=== PATIENT | female | born 1940 ===

== ENCOUNTER 2018-04-21 17:14 | Emergency (ER) | payer MEDICARE, MEDICAID ==
[2018-04-21 17:14] VITALS: BMI 30.8
--- NOTE | 2018-04-21 17:39 | ED PDOC ---
Arrival/HPI - General Chief Complaint: Allergic Reaction Time Seen by Provider: 04/21/18 17:26 Historian: Patient - History of Present Illness Narrative History of Present Illness (Text): 04/21/18 17:26 77 year old female, pmh including low vitamin D/hypothryoidism, penicillin allergy, complaining of bilateral groin itching with pain x 3 days. Pt. stated that her bilateral groin region been itching and admits sweating alot, been scratching and been having burning pain for the past 2 days, no fever or chills , eating and drinking well, no night sweat, no fatigue, no numbness or palpitation, no dizziness, no other medical or psychological complaints. Past Medical History - Provider Review Nursing Documentation Reviewed: Yes - Cardiac Hx Cardiac Disorders: No - Pulmonary Hx Respiratory Disorders: No - Neurological Hx Neurological Disorder: No - HEENT Hx HEENT Disorder: Yes Hx Cataracts: Yes - Renal Hx Renal Disorder: No - Endocrine/Metabolic Hx Endocrine Disorders: No - Hematological/Oncological Hx Blood Disorders: No - Integumentary Hx Dermatological Disorder: No - Musculoskeletal/Rheumatological Hx Musculoskeletal Disorders: Yes Hx Arthritis: Yes - Gastrointestinal Hx Gastrointestinal Disorders: Yes Hx Bowel Surgery: Yes Hx Gall Bladder Disease: Yes Hx Gastroesophageal Reflux: Yes - Genitourinary/Gynecological Hx Genitourinary Disorders: No - Psychiatric Hx Psychophysiologic Disorder: No Hx Substance Use: No - Surgical History Hx Cholecystectomy: Yes - Anesthesia Hx Anesthesia: Yes Hx Anesthesia Reactions: No Hx Malignant Hyperthermia: No - Suicidal Assessment Feels Threatened In Home Enviroment: No Family/Social History - Physician Review Nursing Documentation Reviewed: Yes Family/Social History: Unknown Family HX Smoking Status: Never Smoked Hx Alcohol Use: No Hx Substance Use: No Allergies/Home Meds Allergies/Adverse Reactions: Allergies Penicillins Allergy (Verified 04/21/18 17:16) RASH Home Medications: Home Meds Medication Instructions Recorded Confirmed Multivit,Iron,Min 5/Folic Acid 1 tab PO DAILY 04/21/18 04/21/18 [Strovite Forte Caplet] Ranitidine HCl [Zantac] 150 mg PO BID 04/21/18 04/21/18 Review of Systems - Review of Systems Constitutional: absent: Fatigue, Fevers Eyes: absent: Vision Changes ENT: absent: Hearing Changes Respiratory: absent: SOB, Cough Cardiovascular: absent: Chest Pain Gastrointestinal: absent: Abdominal Pain Skin: Rash, Pruritis, Skin Lesions, Cellulitis. absent: Laceration, Abscess, Ulcer Neurological: absent: Headache, Dizziness Psychiatric: absent: Anxiety, Depression, Suicidal Ideation Physical Exam Vital Signs Reviewed: Yes Vital Signs Temp Pulse Resp BP Pulse Ox 04/21/18 18:05 98.9 F 90 18 154/78 H 97 04/21/18 17:18 99.8 F H 90 16 132/72 98 Temperature: Afebrile Blood Pressure: Normal Pulse: Regular Respiratory Rate: Normal Appearance: Positive for: Well-Appearing, Non-Toxic, Comfortable Pain Distress: Mild Mental Status: Positive for: Alert and Oriented X 3 - Systems Exam Head: Present: Atraumatic, Normocephalic Pupils: Present: PERRL Extroacular Muscles: Present: EOMI Conjunctiva: Present: Normal Mouth: Present: Moist Mucous Membranes Neck: Present: Normal Range of Motion Respiratory/Chest: Present: Clear to Auscultation, Good Air Exchange. No: Respiratory Distress, Accessory Muscle Use Cardiovascular: Present: Regular Rate and Rhythm, Normal S1, S2. No: Murmurs Abdomen: No: Tenderness, Distention, Peritoneal Signs Back: Present: Normal Inspection Upper Extremity: Present: Normal Inspection. No: Cyanosis, Edema Lower Extremity: Present: Normal Inspection. No: Edema Neurological: Present: GCS=15, Speech Normal, Motor Func Grossly Intact, Gait Normal, Memory Normal Skin: Present: Warm, Dry, Rashes (bilateral groin region thigh/hip skin creases region noted to have erythematous rash with lichenification, no streaking or ulcers, no regional lymphenapathy, FROM without limitation, sensation intact, motor 5/5, ), Normal Color Psychiatric: Present: Alert, Oriented x 3, Normal Insight, Normal Concentration Medical Decision Making ED Course and Treatment: 04/21/18 17:43 Differential: tinea cruriris vs. secondary bacterial cellulitis vs. dermatitis -cbc -topical antifungal 04/21/18 18:22 -CBC is unremarkable, afebrile, no change in energy level or appetize. -Differential/labs discussed with the patient and granddaughter, they both preferred outpatient management at this time. -Discharge home with cleocin, clotrimazole and hydrocortizone cream, tylenol, avoid wearing tight underwear, keep the skin cool and dry, follow up with your own pmd and machine pecan picker within 2 days, return to the ER for any new or worsening signs or symptoms. - Lab Interpretations Lab Results: 04/21/18 18:00 Lab Results 04/21/18 18:00: WBC 8.2, RBC 4.17, Hgb 13.3, Hct 37.6, MCV 90.2, MCH 31.9, MCHC 35.4, RDW 12.9, Plt Count 274, MPV 9.2, Gran % 61.1, Lymph % (Auto) 31.0, [place] % (Auto) 4.9, Eos % (Auto) 2.8, Baso % (Auto) 0.2, Gran # 4.98, Lymph # (Auto) 2.5, [place] # (Auto) 0.4, Eos # (Auto) 0.2, Baso # (Auto) 0.02 - Medication Orders Current Medication Orders: Discontinued Medications Betamethasone/Clotrimazole (Lotrisone) 2 gm TOP STAT STA Stop: 04/21/18 17:41 - PA / [employer]ER / Resident Statement / has reviewed & agrees with the documentation as recorded. Disposition/Present on Arrival - Present on Arrival Any Indicators Present on Arrival: No History of DVT/PE: No History of Uncontrolled Diabetes: No Urinary Catheter: No (Post L knee TKR) History of Decub. Ulcer: No History Surgical Site Infection Following: None - Disposition Have Diagnosis and Disposition been Completed?: Yes Diagnosis: Tinea cruris, Cellulitis Disposition: HOME/ ROUTINE Disposition Time: 17:45 Patient Plan: Discharge Patient Problems: Current Active Problems Problem Status Onset Cellulitis Acute Tinea cruris Acute Condition: GOOD Discharge Instructions (ExitCare): Jock Itch (DC), Cellulitis (ED) Additional Instructions: -Discharge home with cleocin, clotrimazole and hydrocortizone cream, tylenol, avoid wearing tight underwear, keep the skin cool and dry, follow up with your own pmd and machine pecan picker within 2 days, return to the ER for any new or worsening signs or symptoms. Prescriptions: Clindamycin [Cleocin] 300 mg PO QID #40 cap Clotrimazole 1% Cream [Lotrimin 1% CREAM] 1 appful EXT BID #60 g Hydrocortisone 1% Cream [Cortizone 1% Cream] 1 appl TP BID #30 g Referrals: Odessa Blake MD [Staff Provider] - Follow up with primary [facility] [place] [Outside] - Follow up with primary Forms: WORK NOTE
[2018-04-21] MEDS ORDERED: Clotrimazole/Betamethasone Cream(15 gm) TOP STA (17:40)
[2018-04-21 18:06] VITALS: RESP 18; TEMP 98.9
[2018-04-21 18:18] LABS: BASO # 0.02 K/mm3 (0.0-2.0); BASO % 0.2 % (0.0-3.0); EOS # 0.2 (0.0-0.7); EOS % 2.8 % (1.5-5.0); GRAN # 4.98 (1.4-6.5); GRAN % 61.1 % (50.0-68.0); HEMOGLOBIN 13.3 g/dL (12.0-16.0); LYMPH # 2.5 (1.2-3.4); MEAN CELL VOLUME 90.2 fl (80.0-105.0); MEAN CORPUSCULAR HEMOGLOBIN 31.9 pg (25.0-35.0); MEAN CORPUSCULAR HGB CONC 35.4 g/dl (31.0-37.0); MEAN PLATELET VOLUME 9.2 fl (7.0-11.0); MONO # 0.4 (0.1-0.6); MONO % 4.9 % (1.0-6.0); RBC 4.17 10^6/uL (3.5-6.1); RED CELL DISTRIBUTION WIDTH 12.9 % (11.5-14.5); WHITE BLOOD COUNT 8.2 10^3/ul (4.5-11.0)
[2018-04-21 19:01] VITALS: BP 140/81; PULSE 85; O2SAT 98
== END 2018-04-21 18:53 | disposition home or self-care (01) ==
LOC: ED 17:14
DX: B35.6 Tinea cruris (principal); L03.90 Cellulitis, unspecified